=== PATIENT | female | born 1990 | race Asian ===

== ENCOUNTER 2016-09-09 16:01 | Inpatient (IN) | payer BC, OTHER ==
--- NOTE | 2016-09-09 16:57 | PDOC ---
History of Present Illness <LucasjuanaStephanie - Last Filed: 09/09/16 22:44> - General History Source: Patient - History of Present Illness Associated Symptoms: reports: nausea/vomiting. denies: chest pain, headaches, shortness of breath <Josh Eller - Last Filed: 09/10/16 13:20> <Zeeshan Leon - Last Filed: 09/11/16 01:20> - General Stated Complaint: PAIN Time Seen by Provider: 09/09/16 16:43 Past History <LucaspeymantanikaStephanie - Last Filed: 09/09/16 22:44> - Past Medical History Cardiac Disorders: Yes (PALPITATIONS SVT) - Psycho/Social/Smoking Cessation Hx Suicidal Ideation: No Smoking History: Never smoked Have you smoked in the past 12 months: No Number of Cigarettes Smoked Daily: 0 Hx Alcohol Use: No Drug/Substance Use Hx: No Substance Use Type: None <Josh Eller - Last Filed: 09/10/16 13:20> <CarolynBolivarZeeshan - Last Filed: 09/11/16 01:20> - Past Medical History Allergies/Adverse Reactions: Allergies Allergy/AdvReac Type Severity Reaction Status Date / Time No Known Allergies Allergy Verified 09/09/16 17:00 Home Medications: Ambulatory Orders NK [No Known Home Medication] 09/09/16 Review of Systems - Review of Systems Constitutional: No: Chills, Fever HEENTM: No: Blurred Vision Respiratory: No: Cough, Shortness of Breath Cardiac (ROS): No: Chest Pain ABD/GI: Yes: Nausea. No: Constipated, Diarrhea, Vomiting, Abdominal cramping : No: Dysuria <Josh Eller Last Filed: 09/10/16 13:20> *Physical Exam - Vital Signs Last Vital Signs Temp Pulse Resp BP Pulse Ox 98.4 F 106 H 22 100/66 99 09/09/16 19:43 09/09/16 19:43 09/09/16 19:43 09/09/16 19:43 09/09/16 19:43 <Stephanie Caceres - Last Filed: 09/09/16 22:44> - Physical Exam General Appearance: Yes: Appropriately Dressed. No: Apparent Distress HEENT: positive: Normal Voice Neck: positive: Supple Respiratory/Chest: positive: Lungs Clear, Normal Breath Sounds. negative: Respiratory Distress Cardiovascular: positive: Regular Rate, S1, S2 Gastrointestinal/Abdominal: positive: Soft. negative: Tender Musculoskeletal: negative: CVA Tenderness Extremity: positive: Normal Inspection Integumentary: positive: Dry, Warm Neurologic: positive: Fully Oriented, Alert, Normal Mood/Affect <Michelle EllerArgenisSavi - Last Filed: 09/10/16 13:20> - Vital Signs Last Vital Signs Temp Pulse Resp BP Pulse Ox 97.5 F L 82 18 105/75 99 09/10/16 14:13 09/10/16 14:13 09/10/16 14:13 09/10/16 14:13 09/10/16 09:12 <CarolynZeeshan - Last Filed: 09/11/16 01:20> Heart Score/ECG Review - ECG Intrepretation Comment:: 09/09/16 17:51 Twelve-lead EKG was performed and reviewed by me. There is normal sinus rhythm with a normal rate. The axis is normal. The intervals are normal. There are no ST or T wave abnormalities. Impression: Normal twelve-lead EKG <Josh Eller - Last Filed: 09/10/16 13:20> ED Treatment Course - LABORATORY CBC & Chemistry Diagram: 09/09/16 16:57 09/09/16 17:24 - ADDITIONAL ORDERS Additional order review: Laboratory Results 09/09/16 09/09/16 09/09/16 19:50 19:32 18:30 D-Dimer < 200 Sodium Potassium Chloride Carbon Dioxide Anion Gap BUN Creatinine Creat Clearance w eGFR Random Glucose Lactic Acid Calcium Total Bilirubin AST ALT Alkaline Phosphatase Creatine Kinase Troponin I Total Protein Albumin Serum , Qual Urine Color Straw Urine Appearance Clear Urine pH 6.0 Urine Protein Negative Urine Glucose (UA) Negative Urine Ketones Trace H Urine Blood 3+ H Urine Nitrite Negative Urine Bilirubin Negative Urine Urobilinogen Negative Ur Leukocyte Esterase Negative Urine RBC 61 Urine WBC <1 Ur Epithelial Cells Rare Urine Mucus Rare Opiates Screen Negative Methadone Screen Negative Barbiturate Screen Negative Phencyclidine Screen Negative Ur Amphetamines Screen Negative MDMA (Ecstasy) Screen Negative Benzodiazepines Screen Negative Cocaine Screen Negative U Marijuana (THC) Screen Negative 09/09/16 09/09/16 09/09/16 18:30 17:24 17:24 D-Dimer Sodium 139 Potassium 4.5 Chloride 104 Carbon Dioxide 27 Anion Gap 8 BUN 12 D Creatinine 0.7 Creat Clearance w eGFR > 60 Random Glucose 88 Lactic Acid 2.1 H* Calcium 9.1 Total Bilirubin 0.5 D AST 22 D ALT 26 Alkaline Phosphatase 59 Creatine Kinase 95 Troponin I < 0.02 Total Protein 7.7 Albumin 3.9 Serum , Qual Negative Urine Color Urine Appearance Urine pH Urine Protein Urine Glucose (UA) Urine Ketones Urine Blood Urine Nitrite Urine Bilirubin Urine Urobilinogen Ur Leukocyte Esterase Urine RBC Urine WBC Ur Epithelial Cells Urine Mucus Opiates Screen Methadone Screen Barbiturate Screen Phencyclidine Screen Ur Amphetamines Screen MDMA (Ecstasy) Screen Benzodiazepines Screen Cocaine Screen U Marijuana (THC) Screen 09/09/16 16:57 RBC 4.77 MCV 85.7 MCHC 33.2 RDW 13.3 MPV 8.6 Neutrophils % 89.3 H D Lymphocytes % 5.4 L D Monocytes % 4.5 Eosinophils % 0.5 D Basophils % 0.3 - Medications Given in the ED: ED Medications Discontinued Medications Generic Name Dose Route Start Last Admin Trade Name Freq PRN Reason Stop Dose Admin Sodium Chloride 1,000 mls @ 1,000 mls/hr 09/09/16 16:58 09/09/16 17:35 Normal Saline - IV 09/09/16 17:57 1,000 mls/hr ASDIR STA Administration Sodium Chloride 1,000 mls @ 1,000 mls/hr 09/09/16 19:30 09/09/16 19:53 Normal Saline - IV 09/09/16 20:29 1,000 mls/hr ASDIR STA Administration <Stephanie Caceres - Last Filed: 09/09/16 22:44> - LABORATORY CBC & Chemistry Diagram: 09/09/16 16:57 09/09/16 17:24 <Josh Eller - Last Filed: 09/10/16 13:20> - LABORATORY CBC & Chemistry Diagram: 09/10/16 06:00 09/10/16 06:00 - ADDITIONAL ORDERS Additional order review: 09/09/16 23:08 Blood Culture - Preliminary Blood - Peripheral Venous NO GROWTH OBTAINED AFTER 24 HOURS, INCUBATION TO CONTINUE FOR 4 DAYS. 09/09/16 22:57 Blood Culture - Preliminary Blood - Peripheral Venous NO GROWTH OBTAINED AFTER 24 HOURS, INCUBATION TO CONTINUE FOR 4 DAYS. 09/10/16 09/09/16 09/09/16 06:00 23:08 16:57 RBC 4.53 4.33 4.77 MCV 85.0 84.8 85.7 MCHC 34.3 33.6 33.2 RDW 13.4 13.3 13.3 MPV 8.9 8.4 8.6 Neutrophils % 76.6 89.3 H D Lymphocytes % 16.5 D 5.4 L D Monocytes % 6.0 4.5 Eosinophils % 0.6 0.5 D Basophils % 0.3 0.3 - Medications Given in the ED: ED Medications Discontinued Medications Generic Name Dose Route Start Last Admin Trade Name Judith PRN Reason Stop Dose Admin Sodium Chloride 1,000 mls @ 1,000 mls/hr 09/09/16 16:58 09/09/16 17:35 Normal Saline - IV 09/09/16 17:57 1,000 mls/hr ASDIR STA Administration Sodium Chloride 1,000 mls @ 1,000 mls/hr 09/09/16 19:30 09/09/16 19:53 Normal Saline - IV 09/09/16 20:29 1,000 mls/hr ASDIR STA Administration Ceftriaxone Sodium 2 mg/ 50 mls @ 100 mls/hr 09/09/16 22:38 09/09/16 23:27 Dextrose IVPB 09/09/16 23:07 100 mls/hr ONCE ONE Administration <Zeeshan Leon - Last Filed: 09/11/16 01:20> Medical Decision Making - Medical Decision Making 09/09/16 16:52 26-year-old female, history of SVT, status post ablation ablation a year ago at [place], brought in by family for hypotension. 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 BP 90s/50s in ED. Patient states she has had similar nausea before around the time when she menstruates and states she is currently menstruating, but denies any history of prior episode of hypotension. Patient denies dizziness, weakness, chest pain or shortness of breath See exam Hypotension of unclear etiology No chest/resp sxs and no e/o infection -ekg -cxr -IVF -labs -anticipate admission 09/09/16 18:39 BP improved w/ IVF. BP now 105/93 w/ HR of 101. Leukocytosis of 17 w/ L shift. Pt denies any infectious sxs at this time and not on steroids. Rest of labs, including lactate and dimer pending 09/09/16 18:45 09/09/16 19:03 Signed out to JUSTA Caceres pending labs and reassessment <Josh Eller - Last Filed: 09/10/16 13:20> - Medical Decision Making 09/11/16 01:20 The patient was seen and evaluated in conjunction with JUSTA Eller under my direct supervision, ancillary studies were reviewed. I agree with the plan as outlined by JUSTA Eller . <Zeeshan Leon - Last Filed: 09/11/16 01:20> *DC/Admit/Observation/Transfer - Discharge Dispostion Decision to Admit order Date/Time: Decision to Admit Order Category Date Time Status Decision to Admit to Hospital Routine Admission 09/09/16 22:41 Active <Stephanie Caceres - Last Filed: 09/09/16 22:44> <Josh Eller - Last Filed: 09/10/16 13:20> <Zeeshan Leon - Last Filed: 09/11/16 01:20> Diagnosis at time of Disposition: Leukocytosis Qualifiers: Leukocytosis type: unspecified Qualified Code(s): D72.829 - Elevated white blood cell count, unspecified Hypotension Qualifiers: Hypotension type: unspecified hypotension type Qualified Code(s): I95.9 - Hypotension, unspecified - Discharge Dispostion Disposition: HOME Condition at time of disposition: Good - Referrals
[2016-09-09] MEDS ORDERED: SODIUM CHLORIDE 1,000 ML IV STA ×2 (16:58→19:30)
[2016-09-09 17:37] LABS: BASOPHIL 0.3 % (0-2.0); EOSINOPHIL 0.5 % (0-4.5); MCH 28.4 pg (25.7-33.7); MCHC 33.2 g/dl (32.0-36.0); MEAN CELL VOLUME 85.7 fl (80-96); MEAN PLT VOLUME 8.6 fl (7.5-11.1); NEUTROPHILS 89.3 % (42.8-82.8); PLATELET COUNT 209 K/MM3 (134-434); RDW 13.3 % (11.6-15.6); WHITE BLOOD COUNT 17.5 K/mm3 (4.0-10.0)
[2016-09-09 18:01] LABS: ALBUMIN 3.9 g/dl (3.4-5.0); BILIRUBIN,TOTAL 0.5 mg/dL (0.2-1.0); CALCIUM 9.1 mg/dL (8.5-10.1); CO2 27 mmol/L (21-32); CREATININE 0.7 mg/dL (0.55-1.02); GLUCOSE,RANDOM 88 mg/dL (74-106); SGOT/AST 22 U/L (15-37); SGPT/ALT 26 U/L (12-78); TOT PROT 7.7 g/dl (6.4-8.2)
[2016-09-09 18:04] LABS: ALK PHOS 59 U/L (45-117); TROPONIN I < 0.02 ng/ml (0.00-0.05)
[2016-09-09 18:46] LABS: ANION GAP 8 (8-16)
--- NOTE | 2016-09-09 19:31 | PDOC ---
ED Treatment Course - LABORATORY CBC & Chemistry Diagram: 09/09/16 16:57 09/09/16 17:24 - ADDITIONAL ORDERS Additional order review: Laboratory Results 09/09/16 09/09/16 09/09/16 18:30 18:30 17:24 D-Dimer < 200 Sodium Potassium Chloride Carbon Dioxide Anion Gap BUN Creatinine Creat Clearance w eGFR Random Glucose Lactic Acid 2.1 H* Calcium Total Bilirubin AST ALT Alkaline Phosphatase Creatine Kinase Troponin I Total Protein Albumin Serum , Qual Negative 09/09/16 17:24 D-Dimer Sodium 139 Potassium 4.5 Chloride 104 Carbon Dioxide 27 Anion Gap 8 BUN 12 D Creatinine 0.7 Creat Clearance w eGFR > 60 Random Glucose 88 Lactic Acid Calcium 9.1 Total Bilirubin 0.5 D AST 22 D ALT 26 Alkaline Phosphatase 59 Creatine Kinase 95 Troponin I < 0.02 Total Protein 7.7 Albumin 3.9 Serum , Qual 09/09/16 16:57 RBC 4.77 MCV 85.7 MCHC 33.2 RDW 13.3 MPV 8.6 Neutrophils % 89.3 H D Lymphocytes % 5.4 L D Monocytes % 4.5 Eosinophils % 0.5 D Basophils % 0.3 - Medications Given in the ED: ED Medications Discontinued Medications Generic Name Dose Route Start Last Admin Trade Name Freq PRN Reason Stop Dose Admin Sodium Chloride 1,000 mls @ 1,000 mls/hr 09/09/16 16:58 09/09/16 17:35 Normal Saline - IV 09/09/16 17:57 1,000 mls/hr ASDIR STA Administration <Stephanie Caceres - Last Filed: 09/09/16 22:44> - LABORATORY CBC & Chemistry Diagram: 09/10/16 06:00 09/10/16 06:00 - ADDITIONAL ORDERS Additional order review: 09/09/16 23:08 Blood Culture - Preliminary Blood - Peripheral Venous NO GROWTH OBTAINED AFTER 24 HOURS, INCUBATION TO CONTINUE FOR 4 DAYS. 09/09/16 22:57 Blood Culture - Preliminary Blood - Peripheral Venous NO GROWTH OBTAINED AFTER 24 HOURS, INCUBATION TO CONTINUE FOR 4 DAYS. 09/10/16 09/09/16 09/09/16 06:00 23:08 16:57 RBC 4.53 4.33 4.77 MCV 85.0 84.8 85.7 MCHC 34.3 33.6 33.2 RDW 13.4 13.3 13.3 MPV 8.9 8.4 8.6 Neutrophils % 76.6 89.3 H D Lymphocytes % 16.5 D 5.4 L D Monocytes % 6.0 4.5 Eosinophils % 0.6 0.5 D Basophils % 0.3 0.3 - Medications Given in the ED: ED Medications Discontinued Medications Generic Name Dose Route Start Last Admin Trade Name Judith PRN Reason Stop Dose Admin Sodium Chloride 1,000 mls @ 1,000 mls/hr 09/09/16 16:58 09/09/16 17:35 Normal Saline - IV 09/09/16 17:57 1,000 mls/hr ASDIR STA Administration Sodium Chloride 1,000 mls @ 1,000 mls/hr 09/09/16 19:30 09/09/16 19:53 Normal Saline - IV 09/09/16 20:29 1,000 mls/hr ASDIR STA Administration Ceftriaxone Sodium 2 mg/ 50 mls @ 100 mls/hr 09/09/16 22:38 09/09/16 23:27 Dextrose IVPB 09/09/16 23:07 100 mls/hr ONCE ONE Administration <Zeeshan Leon - Last Filed: 09/11/16 01:20> Progress Note - Progress Note Progress Note: I have received report from JUSTA Paniagua regarding this patient. Pt's initial chief complaint: hypotension Pt's work up completed prior to sign out: cbc, cmp Pt treatment given from prior staff: IV fluids Pt plan to be completed: awaiting UA/culture, lactic, d-dimer Dispo: Pending <Stephanie Caceres - Last Filed: 09/09/16 22:44> Medical Decision Making - Medical Decision Making A/P: 26 y/o female with PMH SVT (s/p ablation 1 year ago at [facility]) BIB family for hypotension. The patient was initially assessed by JUSTA Paniagua and her BP was 90/50. She was found to have a WBC count with left shift. Awaiting d- dimer, lactic acid, UA/culture, CXR. d-dimer <200 Lactic 2.1 Still awaiting UA/culture and CXR Ordered another 1L of IV fluids CXR IMPRESSION: No acute pathology. Spoke with Dr. Gates and she would like me to speak with Dr. Leblanc's group and call her back. Spoke with Dr. Warren and he suggests blood cultures, 2g Ceftriaxone and admit to observation to he can consult in the morning. Spoke with Dr. Gates again and she is amenable to admission to obs. Will also recheck a CBC and lactic acid level. The patient is made aware of the plan. <Stephanie Caceres - Last Filed: 09/09/16 22:44> - Medical Decision Making 09/11/16 01:18 The patient was seen and evaluated in conjunction with JUSTA Caceres under my direct supervision, ancillary studies were reviewed. I agree with the plan as outlined by JUSTA Caceres . <Zeeshan Leon - Last Filed: 09/11/16 01:20> *DC/Admit/Observation/Transfer - Discharge Dispostion Admit: Yes <Stephanie Caceres - Last Filed: 09/09/16 22:44> <Zeeshan Leon - Last Filed: 09/11/16 01:20> Diagnosis at time of Disposition: Leukocytosis Qualifiers: Leukocytosis type: unspecified Qualified Code(s): D72.829 - Elevated white blood cell count, unspecified Hypotension Qualifiers: Hypotension type: unspecified hypotension type Qualified Code(s): I95.9 - Hypotension, unspecified - Discharge Dispostion Disposition: HOME Condition at time of disposition: Good - Referrals
[2016-09-09 20:39] LABS: URINE APPEARANCE CLEAR; URINE BILIRUBIN NEGATIVE (NEGATIVE); URINE BLOOD 3+ (NEGATIVE); URINE COLOR STRAW; URINE GLUCOSE (UA) NEGATIVE (NEGATIVE); URINE KETONE TRACE (NEGATIVE); URINE LEUK ESTERASE NEGATIVE (NEGATIVE); URINE NITRITE NEGATIVE (NEGATIVE); URINE PROTEIN NEGATIVE (NEGATIVE); URINE UROBILINOGEN NEGATIVE mg/dL (0.2-1.0)
[2016-09-09 20:49] LABS: URINE MARIJUANA THC NEGATIVE ng/ml (CUTOFF=50)
[2016-09-09 21:38] LABS: URINE MUCUS RARE; URINE RBC 61 /hpf (0-3); URINE WBC <1 /hpf (3-5)
[2016-09-09] MEDS ORDERED: CEFTRIAXONE 2 MG in DEXTROSE 5%-WATER - 50 ML IVPB ONE (22:38)
[2016-09-09 23:18] LABS: BASOPHIL 0.3 % (0-2.0); EOSINOPHIL 0.6 % (0-4.5); MCH 28.5 pg (25.7-33.7); MCHC 33.6 g/dl (32.0-36.0); MEAN CELL VOLUME 84.8 fl (80-96); MEAN PLT VOLUME 8.4 fl (7.5-11.1); NEUTROPHILS 76.6 % (42.8-82.8); PLATELET COUNT 200 K/MM3 (134-434); RDW 13.3 % (11.6-15.6); WHITE BLOOD COUNT 14.4 K/mm3 (4.0-10.0)
[2016-09-09] MEDS ORDERED: CEFTRIAXONE 100 ML IVPB ONE (23:25)
[2016-09-10 01:14] VITALS: BMI 18.8
[2016-09-10] MEDS ORDERED: ACETAMINOPHEN 325 MG TABLET (FP) PO PRN (01:45)
[2016-09-10 07:32] LABS: MCH 29.2 pg (25.7-33.7); MCHC 34.3 g/dl (32.0-36.0); MEAN PLT VOLUME 8.9 fl (7.5-11.1); PLATELET COUNT 198 K/MM3 (134-434); RDW 13.4 % (11.6-15.6); WHITE BLOOD COUNT 14.5 K/mm3 (4.0-10.0)
[2016-09-10 07:39] LABS: ALBUMIN 3.4 g/dl (3.4-5.0); GLUCOSE,RANDOM 84 mg/dL (74-106)
[2016-09-10 07:44] LABS: ALK PHOS 53 U/L (45-117); ANION GAP 8 (8-16); CALCIUM 8.7 mg/dL (8.5-10.1); CO2 27 mmol/L (21-32); CREATININE 0.5 mg/dL (0.55-1.02); SGOT/AST 18 U/L (15-37); SGPT/ALT 21 U/L (12-78); TOT PROT 6.6 g/dl (6.4-8.2)
--- NOTE | 2016-09-10 09:11 | PN ---
Progress Note, Physician Chief Complaint: Pt lying in bed ,afebrile,feels better No complaints now Rpt CBC shows ,WBC 14.5,neutrophil 76.6,lactic acid level 0.5 Will wait for ID rec - Current Medication List Current Medications: Active Medications Acetaminophen (Tylenol -) 650 mg PO Q6H PRN PRN Reason: FEVER OR PAIN - Objective Vital Signs: Vital Signs Temperature 98.1 F 09/10/16 06:00 Pulse Rate 81 09/10/16 06:00 Respiratory Rate 18 09/10/16 06:00 Blood Pressure 92/58 09/10/16 06:00 O2 Sat by Pulse Oximetry (%) 99 09/10/16 01:18 Constitutional: Yes: No Distress Eyes: Yes: Conjunctiva Clear HENT: Yes: Atraumatic, Normocephalic Neck: Yes: Supple, Trachea Midline Cardiovascular: Yes: Regular Rate and Rhythm Respiratory: Yes: Regular, CTA Bilaterally Gastrointestinal: Yes: WNL, Normal Bowel Sounds, Soft Musculoskeletal: Yes: WNL Extremities: Yes: WNL Edema: No Peripheral Pulses WNL: Yes Neurological: Yes: WNL, Alert, Oriented ...Motor Strength: WNL Psychiatric: Yes: WNL, Alert Labs: CBC, BMP 09/10/16 06:00 09/10/16 06:00 Laboratory Results - last 24 hr 09/09/16 09/09/16 09/09/16 16:57 17:24 17:24 WBC 17.5 H D RBC 4.77 Hgb 13.6 Hct 40.9 MCV 85.7 MCH 28.4 MCHC 33.2 RDW 13.3 Plt Count 209 MPV 8.6 Neutrophils % 89.3 H D Lymphocytes % 5.4 L D Monocytes % 4.5 Eosinophils % 0.5 D Basophils % 0.3 D-Dimer Sodium 139 Potassium 4.5 Chloride 104 Carbon Dioxide 27 Anion Gap 8 BUN 12 D Creatinine 0.7 Creat Clearance w eGFR > 60 Random Glucose 88 Lactic Acid Calcium 9.1 Total Bilirubin 0.5 D AST 22 D ALT 26 Alkaline Phosphatase 59 Creatine Kinase 95 Troponin I < 0.02 Total Protein 7.7 Albumin 3.9 Serum , Qual Negative Urine Color Urine Appearance Urine pH Ur Specific [place] Urine Protein Urine Glucose (UA) Urine Ketones Urine Blood Urine Nitrite Urine Bilirubin Urine Urobilinogen Ur Leukocyte Esterase Urine RBC Urine WBC Ur Epithelial Cells Urine Mucus Opiates Screen Methadone Screen Barbiturate Screen Phencyclidine Screen Ur Amphetamines Screen MDMA (Ecstasy) Screen Benzodiazepines Screen Cocaine Screen U Marijuana (THC) Screen 09/09/16 09/09/16 09/09/16 18:30 18:30 19:32 WBC RBC Hgb Hct MCV MCH MCHC RDW Plt Count MPV Neutrophils % Lymphocytes % Monocytes % Eosinophils % Basophils % D-Dimer < 200 Sodium Potassium Chloride Carbon Dioxide Anion Gap BUN Creatinine Creat Clearance w eGFR Random Glucose Lactic Acid 2.1 H* Calcium Total Bilirubin AST ALT Alkaline Phosphatase Creatine Kinase Troponin I Total Protein Albumin Serum , Qual Urine Color Straw Urine Appearance Clear Urine pH 6.0 Ur Specific [place] 1.010 Urine Protein Negative Urine Glucose (UA) Negative Urine Ketones Trace H Urine Blood 3+ H Urine Nitrite Negative Urine Bilirubin Negative Urine Urobilinogen Negative Ur Leukocyte Esterase Negative Urine RBC 61 Urine WBC <1 Ur Epithelial Cells Rare Urine Mucus Rare Opiates Screen Methadone Screen Barbiturate Screen Phencyclidine Screen Ur Amphetamines Screen MDMA (Ecstasy) Screen Benzodiazepines Screen Cocaine Screen U Marijuana (THC) Screen 09/09/16 09/09/16 09/09/16 19:50 23:08 23:08 WBC 14.4 H RBC 4.33 Hgb 12.3 Hct 36.7 MCV 84.8 MCH 28.5 MCHC 33.6 RDW 13.3 Plt Count 200 MPV 8.4 Neutrophils % 76.6 Lymphocytes % 16.5 D Monocytes % 6.0 Eosinophils % 0.6 Basophils % 0.3 D-Dimer Sodium Potassium Chloride Carbon Dioxide Anion Gap BUN Creatinine Creat Clearance w eGFR Random Glucose Lactic Acid 0.5 Calcium Total Bilirubin AST ALT Alkaline Phosphatase Creatine Kinase Troponin I Total Protein Albumin Serum , Qual Urine Color Urine Appearance Urine pH Ur Specific [place] Urine Protein Urine Glucose (UA) Urine Ketones Urine Blood Urine Nitrite Urine Bilirubin Urine Urobilinogen Ur Leukocyte Esterase Urine RBC Urine WBC Ur Epithelial Cells Urine Mucus Opiates Screen Negative Methadone Screen Negative Barbiturate Screen Negative Phencyclidine Screen Negative Ur Amphetamines Screen Negative MDMA (Ecstasy) Screen Negative Benzodiazepines Screen Negative Cocaine Screen Negative U Marijuana (THC) Screen Negative 09/10/16 09/10/16 06:00 06:00 WBC 14.5 H RBC 4.53 Hgb 13.2 Hct 38.5 MCV 85.0 MCH 29.2 MCHC 34.3 RDW 13.4 Plt Count 198 MPV 8.9 Neutrophils % Lymphocytes % Monocytes % Eosinophils % Basophils % D-Dimer Sodium 141 Potassium 3.9 Chloride 106 Carbon Dioxide 27 Anion Gap 8 BUN 8 D Creatinine 0.5 L D Creat Clearance w eGFR > 60 Random Glucose 84 Lactic Acid Calcium 8.7 Total Bilirubin 1.0 D AST 18 ALT 21 Alkaline Phosphatase 53 Creatine Kinase Troponin I Total Protein 6.6 Albumin 3.4 Serum , Qual Urine Color Urine Appearance Urine pH Ur Specific [place] Urine Protein Urine Glucose (UA) Urine Ketones Urine Blood Urine Nitrite Urine Bilirubin Urine Urobilinogen Ur Leukocyte Esterase Urine RBC Urine WBC Ur Epithelial Cells Urine Mucus Opiates Screen Methadone Screen Barbiturate Screen Phencyclidine Screen Ur Amphetamines Screen MDMA (Ecstasy) Screen Benzodiazepines Screen Cocaine Screen U Marijuana (THC) Screen - ....Imaging X-ray: Report Reviewed EKG: Report Reviewed Assessment/Plan Leukocytosis HYpotension PLAN Will monitor Pt Will f/u ID rec F?U blood cul
--- NOTE | 2016-09-10 11:54 | EKG ---
Test Reason : Blood Pressure : / mmHG Vent. Rate : 074 BPM Atrial Rate : 074 BPM P-R Int : 124 ms QRS Dur : 076 ms QT Int : 392 ms P-R-T Axes : 075 054 052 degrees QTc Int : 435 ms NORMAL SINUS RHYTHM POSSIBLE LEFT ATRIAL ENLARGEMENT BORDERLINE ECG WHEN COMPARED WITH ECG OF 30-DEC-2015 16:57, NO SIGNIFICANT CHANGE WAS FOUND Confirmed by DARIN LEES MD ([id number]) on 09/10/2016 11:54:17 AM Referred By: Confirmed By:DARIN LEES MD
--- NOTE | 2016-09-10 13:57 | PN ---
Progress Note (short form) - Note Progress Note: ID Consult dictated 26 year old female PMH SVT s/p ablation admitted after episode of nausea, chills/ sweats Afebrile but WBC 17k, lactic acid 2.1 Presently feels well WBC improved Cultures no growth Will D/C antibiotics, observe off
[2016-09-10 14:14] VITALS: BP 105/75; PULSE 82; TEMP 97.5
--- NOTE | 2016-09-10 14:34 | DS ---
Physical Examination Vital Signs: Vital Signs Temperature 97.5 F L 09/10/16 14:13 Pulse Rate 82 09/10/16 14:13 Respiratory Rate 18 09/10/16 14:13 Blood Pressure 105/75 09/10/16 14:13 O2 Sat by Pulse Oximetry (%) 99 09/10/16 09:12 Discharge Summary Reason For Visit: LEUKOCYTOSIS/HYPOTENSION Current Active Problems Hypotension (Acute) Leukocytosis (Acute) H/o SVT s/p ablation Hospital Course: pt with h/o SVT and S/p ablation admitted with hypotension and leucocytosis of unknown etiology.At the time of admission WBC was 17.5 and lactic acid level was 2.5 EKG NL,X ray chest NL,cardiac enzyme NL,CMP NL,urine shows BLOOD as per pt was in periods.blood culture pending PT was treated with 2 gm of Ceftrioxone,IV fluids Pt was afebrile and stable on the floor.Tolerated regular food Pt was seen by ID and cleared for D?\/C and rec to f/u CBC an outpatient basis PT d/c home in a stable condition Condition: Good - Instructions Referrals: Cali Escobar MD [Primary Care Provider] - - Home Medications Comprehensive Discharge Medication List: Ambulatory Orders NK [No Known Home Medication] 09/09/16
--- NOTE | 2016-09-10 22:12 | HP ---
DATE OF ADMISSION: 09/10/2016 The patient is a 26-year-old female with a history of SVT status post ablation 1 year ago at [place], brought to the emergency room by the family with a history of hypertension. 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 Patient states she had similar nausea before, around the time of menstruation. As per the patient, she started menstruating yesterday, but denies any history of hypertension, dizziness, weakness, chest pain, or shortness of breath. No fever. No urinary symptoms. No history of any abnormal food intake. Patient is not on any steroid. PAST MEDICAL HISTORY: History of SVT and status post ablation. SURGICAL HISTORY: Nothing significant. PERSONAL HISTORY: Nothing significant. Lives with the family. No known drug allergies. Patient is not taking any medication. REVIEW OF SYSTEMS: General: No history of fever or chills. Respiratory: No shortness of breath. Cardiovascular: No palpitation, no dizziness, no chest pain. Abdomen: Slightly nausea present. No vomiting, diarrhea. Neurological: Nothing significant. Musculoskeletal: Nothing significant. PHYSICAL EXAMINATION IN EMERGENCY ROOM: Vital Signs: Temperature 98.4, pulse rate 106, respiration 22, blood pressure 100/66, and saturation 99. Head and Neck: Normal. Neck supple. No JVD. Chest: Clear. Cardiovascular: 1st and 2nd sound normal. Abdomen: Soft. No tenderness, no distention. Bowel sounds present. Extremities: No edema. Neurological: Normal. Cranial nerves 2-12 normal. No apparent motor or sensory deficit. Regarding the labs, CBC: WBC 17.5, hemoglobin 13.6, hematocrit 40.9, platelets 209, neutrophils 89.3, lymphocytes 5.4, lactic acid level 2.1. Comprehensive panel: Sodium 139, potassium 4.5, BUN 12, creatinine 0.7, sugar 88. Troponin negative. Serum test negative. Urine shows blood 3+, ketones trace, RBCs 61. Urine drug screen negative. Blood culture pending. Chest x-ray negative. EKG shows normal sinus rhythm, no ST-T wave changes. Patient was given IV fluid. Because of the leukocytosis and hypotension, case discussed with ID, Dr. Munson, who recommends blood cultures and 2 g ceftriaxone 1 dose, and admit for observation. Patient kept for observation. Recommend to repeat the labs and will follow ID recommendation. ADMITTING DIAGNOSES: Leukocytosis, nonspecified, and hypotension. PLAN: Will monitor the CBC, CMP, lactic acid, and the blood culture. Patient stable on the floor. Shaggy [id number]
--- NOTE | 2016-09-11 07:59 | CONS ---
DATE OF CONSULTATION: HISTORY: The patient is a 26-year-old female with a history of SVT status post ablation 1 year ago at [place] evaluated for possible sepsis. 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 While at work, she developed onset of nausea, chills, and sweats. She also experienced some abdominal cramping. A co-worker took her blood pressure and noted her to be 70/30. She was referred to the emergency room. In the emergency room, she was afebrile; however, white blood cell count was elevated 17,000. She was also noted to have a lactic acidosis. The patient complained of some abdominal cramping, which she attributes to the onset of menses. She states she has had similar syndromes in the past at the beginning of her menstrual period. She denies any recent febrile illness or rigors. No complaints of chest pain, shortness of breath, cough, sputum production. No dysuria or hematuria. She denies any ill contacts. 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 She also has contact with blood. She denies any ill contacts or any recent tick or mosquito bites. PAST MEDICAL HISTORY: As above. ALLERGIES: No known allergies. MEDICATIONS: Tylenol. The patient received ceftriaxone. SOCIAL HISTORY: She works in a dialysis center. She lives at home with family members. Nonsmoker, nondrinker. No history of illicit drug use. Toxicology screen was negative. Her HIV status is not known. SYSTEMS REVIEW: Neurologic: No loss of consciousness, seizure activity, focal weakness. Cardiac: Negative chest pain or palpitations. Respiratory: Negative cough or sputum production. Gastrointestinal: As per HPI. Genitourinary: Negative for urinary tract infection. Positive microscopic hematuria possibly secondary to menstrual period. LABORATORY DATA: White count 17,000 with 88 neutrophils, 5 lymphocytes, 4 monocytes. Hematocrit 38.5, platelet count 198, creatinine 0.5. Liver enzymes normal. Urinalysis less than 1 white cell, 61 red cells. Toxicology screen negative. Chest x-ray negative for acute infiltrate. PHYSICAL EXAMINATION: General: She is awake and alert. She is thin in no acute distress. Vital Signs: Temperature 97.1, blood pressure 98/58, pulse 93, regular, respirations 18 per minute. HEENT: Sclerae anicteric. Heart: Sounds S1, S2. No murmur. Lungs: Clear. Abdomen: Soft. No suprapubic or flank tenderness. Extremities: Negative for edema. IMPRESSION: A 26-year-old female admitted with transient episode of nausea, chills, sweats, and abdominal discomfort to have elevated white blood cell count and lactic acidosis. Source of leukocytosis not clear. Presently, the patient feels well and has no localizing signs or symptoms. Her vital signs are stable. Blood pressure improved. Await culture results. We will observe off antibiotic therapy. Repeat CBC as outpatient. Case discussed with primary care physician. Thank you for the kind referral. SID RALPH M.D. [id number]
== END 2016-09-10 15:33 | disposition home or self-care (01) | DRG 316 ==
LOC: JER 16:01 → JERBED 22:41 → UNDOADMOB 22:41 → JERBED 23:17 → J7W 09-10 01:03 → INTOOBSV 09-10 01:50 → OBSVTOIN 09-10 01:50 → J7W 09-10 09:11 → JERBED 09-10 09:11 → OBSVTOIN 09-10 09:13
PROVIDERS: ADMIT Family Medicine; ATTEND Family Medicine
DX: I95.89 Other hypotension (principal); D72.829 Elevated white blood cell count, unspecified; R11.0 Nausea
CPT/HCPCS: 36415; 71010-TC; 80053; 80307; 81003; 81015; 82550; 83605; 84484; 84703; 85025; 85027; 85379; 87040; 93005; 93010; 99285-25; G0378

== ENCOUNTER 2019-03-30 13:11 | Emergency (ER) | payer BC, OTHER ==
[2019-03-30 13:37] VITALS: BP 102/62; PULSE 104; TEMP 98.8; BMI 18.3
--- NOTE | 2019-03-30 15:10 | PDOC ---
History of Present Illness - General Stated Complaint: BODY ACHE/DIZZY Time Seen by Provider: 03/30/19 14:51 History Source: Patient Exam Limitations: No Limitations Past History - Travel Traveled outside of the country in the last 30 days: No Close contact w/someone who was outside of country & ill: No - Past Medical History Allergies/Adverse Reactions: Allergies Allergy/AdvReac Type Severity Reaction Status Date / Time No Known Allergies Allergy Verified 03/30/19 13:37 Home Medications: Ambulatory Orders No115/Iron/Folic Acid [ 19 Chewable Tablet] 1 each PO DAILY # 30 tab.chew 03/30/19 Cardiac Disorders: Yes (PALPITATIONS SVT) COPD: No CHF: No - Surgical History Cardiac Surgery: (ablation) - Psycho Social/Smoking Cessation Hx Smoking History: Never smoked Have you smoked in the past 12 months: No Number of Cigarettes Smoked Daily: 0 Cigars Per Day: 0 Information on smoking cessation initiated: No Hx Alcohol Use: No Drug/Substance Use Hx: No Substance Use Type: None Hx Substance Use Treatment: No Review of Systems - Review of Systems Able to Perform ROS?: Yes Comments:: 03/30/19 15:56 CONSTITUTIONAL: Present: Malaise Absent: fever, chills, diaphoresis, generalized weakness, malaise, loss of appetite HEENT: Absent: rhinorrhea, nasal congestion, throat pain, throat swelling, difficulty swallowing, mouth swelling, ear pain, eye pain, visual Changes CARDIOVASCULAR: Absent: chest pain, loss of consciousness, palpitations, irregular heart rate, peripheral edema RESPIRATORY: Absent: cough, shortness of breath, dyspnea with exertion, orthopnea, wheezing, stridor, hemoptysis GASTROINTESTINAL: Absent: abdominal pain, abdominal distension, nausea, vomiting, diarrhea, constipation, melena, hematochezia GENITOURINARY: Absent: dysuria, frequency, urgency, hesitancy, hematuria, flank pain, genital pain MUSCULOSKELETAL: Absent: myalgia, arthralgia, joint swelling SKIN: Absent: rash, itching, pallor NEUROLOGIC: Absent: headache, focal weakness or paresthesias, dizziness, unsteady gait, seizure, mental status changes, bladder or bowel incontinence PSYCHIATRIC: Absent: anxiety, depression, suicidal or homicidal ideation, hallucinations. Is the patient limited Czech proficient: No *Physical Exam - Vital Signs Last Vital Signs Temp Pulse Resp BP Pulse Ox 98.8 F 104 H 17 102/62 100 03/30/19 13:34 03/30/19 13:34 03/30/19 13:34 03/30/19 13:34 03/30/19 13:34 - Physical Exam 03/30/19 15:56 GENERAL: Well developed, well nourished. Awake and alert. No acute distress. HEENT: Normocephalic, atraumatic. PERRLA, EOMI. No conjunctival pallor. Sclera are non- icteric. Moist mucous membranes. Oropharynx is clear. NECK: Supple. Full ROM. No JVD. Carotid pulses 2+ and symmetric, without bruits. No thyromegaly. No lymphadenopathy. CARDIOVASCULAR: Regular rate and rhythm. No murmurs, rubs, or gallops. Distal pulses are 2+ and symmetric. PULMONARY: No evidence of respiratory distress. Lungs clear to auscultation bilaterally. No wheezing, rales or rhonchi. ABDOMINAL: Soft. Non-tender. Non-distended. No rebound or guarding. No organomegaly. Normoactive bowel sounds. MUSCULOSKELETAL Normal range of motion at all joints. No bony deformities or tenderness. No CVA tenderness. EXTREMITIES: No cyanosis. No clubbing. No edema. No calf tenderness. SKIN: Warm and dry. Normal capillary refill. No rashes. No jaundice. NEUROLOGICAL: Alert, awake, appropriate. Cranial nerves 2-12 intact. No deficits to light touch and temperature in face, upper extremities and lower extremities. No motor deficits in the in face, upper extremities and lower extremities. Normoreflexic in the upper and lower extremities. Normal speech. Toes are down- going bilaterally. Gait is normal without ataxia. PSYCHIATRIC: Cooperative. Good eye contact. Appropriate mood and affect. Medical Decision Making - Medical Decision Making 03/30/19 15:57 The patient is a 28-year-old female who presents to the ER today for feeling tired starting this morning. She states that she missed her last menstrual cycle and she is concerned she might be . LMP 02/18/19. Denies fevers, flulike symptoms, abdominal pain, vaginal bleeding, nausea, vomiting and diarrhea. A/P: UA is positive for . We will refer patient to [facility] as she has no symptoms at this time. vitamins sent to patient's pharmacy Discharge home. I discussed the physical exam findings, ancillary test results and final diagnoses with the patient. I answered all of the patient's questions. The patient was satisfied with the care received and felt comfortable with the discharge plan and treatment plan. The Patient agrees to follow up with the primary care physician/specialist within 24-72 hours. Return precautions were given. Discharge - Discharge Information Problems reviewed: Yes Clinical Impression/Diagnosis: Qualifiers: Weeks of gestation: less than 8 weeks Qualified Code(s): Z3A.01 - Less than 8 weeks gestation of Condition: Stable Disposition: HOME - Admission No - Follow up/Referral Referrals: Leidy Swift MD [Primary Care Provider] - Roni Wu MD [Staff Physician] - - Patient Discharge Instructions Patient Printed Discharge Instructions: DI for -- Discomforts and Remedies Additional Instructions: You are today. Based on your last menstrual cycle you were due in November. Please follow-up with your EP TECH this week. Call to make an appointment. If you do not have one I have provided a referral for you. Please take a vitamin daily. A prescription has been sent to your pharmacy. Return to the ER for abdominal pain, vomiting, vaginal bleeding or if you have any changes in your symptoms. - Post Discharge Activity Work/Back to School Note: Back to School
[2019-03-30 15:51] LABS: EPI CELLS 10.1 /HPF (0-5/HPF); HYALINE CASTS 3 /lpf (0-8); URINE APPEARANCE CLEAR; URINE BACTERIA 49.2 /hpf (NEGATIVE); URINE BILIRUBIN NEGATIVE (NEGATIVE); URINE COLOR YELLOW; URINE GLUCOSE (UA) NEGATIVE (NEGATIVE); URINE KETONE NEGATIVE (NEGATIVE); URINE LEUK ESTERASE NEGATIVE (NEGATIVE); URINE NITRITE NEGATIVE (NEGATIVE); URINE PROTEIN NEGATIVE (NEGATIVE); URINE RBC 8 /hpf (0-4); URINE UROBILINOGEN 0.2 mg/dL (0.2-1.0); URINE WBC 9 /hpf (0-5)
== END 2019-03-30 16:04 | disposition home or self-care (01) ==
LOC: JERFT 13:11
DX: O26.891 Other specified pregnancy related conditions, first trimester (principal); Z3A.01 Less than 8 weeks gestation of pregnancy
CPT/HCPCS: 81003; 84703; 99282-25